=== PATIENT | male | born 1945 | race Caucasian/White ===

== ENCOUNTER → 2018-09-13 | Outpatient (CLI) | payer MEDICARE, BC ==
[~2018-09-13] MED LIST: ADULT LOW DOSE81 MG PO; ADVAIR HFA 230M1 AER INH; ADVAIR HFA115 MCG/21 INH; ALBUTEROL SULFAT2 MG; ALPRAZOLAM 0.50.5 M1; AUGMENTIN 875875 MG PO; AZITHROMYCIN 2250 MG PO; CALCIUM +D & M1 EAC1; CALCIUM 600 +1 EAC7 PO; CHLORTHALIDONE25 MG PO; COZAAR 50 MG TA50 M2 PO; COZAAR100 MG; CYMBALTA60 MG; DOXYCYCLINE 10100 M1; FLOMAX; HYDROCODON-ACE1 EACH; LOPRESSOR25 PO; LOVASTAT20; LOVASTAT40; MULTIVITAMINS PO; OCUVITE TABLET1 EAC1 PO; OMEPRAZOLE20 M2 PO; POTASSIUM20 PO; PREDNISONE 10 M10 MG PO; PREDNISONE10 MG PO; PROTONIX40 M2; QUESTRAN PACKET4 GM PO; SINGULAIR 10 MG10 M1 PO; SPIRIVA; TRIAMCINOLONE A80 G2 TOP; UNICOMPLEX M TA1 TA1 PO; VENTOLIN HFA 1818 GM; VENTOLIN HFA 1818 GM INH; VENTOLIN HFA INH8 GM IH; VERAPAMIL ER300 MG; XANAX 0.25 MG0.25 MG PO; ZANTAC 150MG T150 MG PO
== END ==
LOC: M.ULTRA 09:01
DX: I65.23 Occlusion and stenosis of bilateral carotid arteries (principal); Z88.8 Allergy status to other drugs, medicaments and biological substances; Z88.2 Allergy status to sulfonamides